=== PATIENT | female | born 1960 | race Caucasian/White ===

== ENCOUNTER → 2017-03-05 | Outpatient (CLI) | payer BC | END | disposition home or self-care (01) | LOC: C.PAPS 12:20 | PROVIDERS: ATTEND Family Medicine | DX: Z12.72 Encounter for screening for malignant neoplasm of vagina (principal) ==

== ENCOUNTER → 2017-10-01 | Outpatient (CLI) | payer BC, OTHER | END | disposition home or self-care (01) | LOC: C.RDSM 15:20 | PROVIDERS: ATTEND Physical Medicine & Rehabilitation Sports Medicine | DX: M25.561 Pain in right knee (principal) ==

== ENCOUNTER → 2017-10-03 | Outpatient (CLI) | payer OTHER ==
--- NOTE | 2017-10-03 12:58 | DIAGNOSTIC IMAGING REPORT ---
MRI THE RIGHT KNEE NO CONTRAST CLINICAL HISTORY: Right knee pain COMPARISON STUDY: Conventional radiographic study dated 10/01/2017 FINDINGS: There is minor marrow edema involving the medial femoral condyle and medial tibial plateau, likely on a degenerative/stress related basis. There is a small joint effusion. There is mild chondromalacia patella. The patellar and quadriceps tendons appear intact. The anterior and posterior cruciate ligaments appear intact. The medial and lateral collateral ligaments appear intact. No tears of the lateral meniscus are visualized. There is a suspected longitudinal tear of the medial meniscus, visualized best on the coronal images.. IMPRESSION: 1. Subtle longitudinal tear involving the medial meniscus 2. Mild chondromalacia patella 3. Mild marrow edema within the medial femoral condyle and medial tibial plateau, likely on a degenerative/stress related basis 4. No evidence of cruciate or collateral ligament disruption Electronically signed by: Brian Galvez M.D. 10/03/2017 12:57 PM Dictated Date/Time: 10/03/2017 12:48 PM
== END | disposition home or self-care (01) ==
LOC: C.MRI 11:33
PROVIDERS: ATTEND Physical Medicine & Rehabilitation Sports Medicine
DX: M25.561 Pain in right knee (principal)

== ENCOUNTER → 2018-01-20 | Day surgery (SDC) | payer OTHER ==
[2017-12-18 15:26] VITALS: Ht 157.5 cm; Wt 63.6 kg
[~2018-01-20] VITALS: Ht 157.5 cm; Wt 63.6 kg
== END | disposition home or self-care (01) ==
LOC: EDSTATUS 07:00 → C.PAT 16:15
PROVIDERS: ATTEND Physical Medicine & Rehabilitation Sports Medicine
DX: S83.241A Other tear of medial meniscus, current injury, right knee, initial encounter (principal); Z53.9 Procedure and treatment not carried out, unspecified reason; X58.XXXA Exposure to other specified factors, initial encounter